=== PATIENT | male | born 1955 | race Caucasian/White ===

== ENCOUNTER 2023-10-21 14:49 | Emergency (ER) | payer MEDICARE, OTHER | END 2023-10-21 17:03 | disposition home or self-care (01) | LOC: EDSEX 14:49 → JP.ED 14:49 | DX: J02.9 Acute pharyngitis, unspecified (principal); E78.00 Pure hypercholesterolemia, unspecified; Z79.899 Other long term (current) drug therapy; Z87.891 Personal history of nicotine dependence | CPT/HCPCS: 87651-QW; 99283 ==